=== PATIENT | male | born 1950 | race Caucasian/White ===

== ENCOUNTER 2019-02-21 09:57 | Outpatient (CLI) | payer MEDICARE ==
--- NOTE | 2019-02-21 12:10 | CT ---
CT CHEST WITHOUT CONTRAST: INDICATIONS: Personal history of tobacco use/nicotine dependence with a smoking history of 35 years. COMPARISON: None. TECHNIQUE: Axial tomograms obtained through the chest following a low dose screening protocol. FINDINGS: There are chronic lung parenchymal changes. There are early changes of central lobular emphysema bila terally. Mild hyperexpansion. There is some apical pleural thickening bilaterally. A tiny, 3 mm nodule in the peripheral left upper lobe (image 70 of 244, axial). There is a 3 to 4 mm nodule in the right middle lobe, which may be calcified but I cannot confirm cheryl cification on coronal or sagittal images. This is seen on image 138 of 244, axial. Mild interstitial thickening in the periphery of both lungs, which appears chronic. No evidence of ef fusion or infiltrate. Mediastinum unremarkable with no evidence of adenopathy. Degenerative changes i n the thoracic spine with mild wedging of the mid thoracic vertebrae and bridging osteophytes. Images through the upper abdomen show a partially calcified, rounded density within the gallbladder, consistent with a large gallstone. This is incompletely evaluated. Recommend correlation with gallbla dder ultrasound if this has not been previously confirmed. IMPRESSION: 1. Chronic lung parenchymal changes as described above. Tiny nodules are seen bilaterally as describe d above. 2. Lung-RADS 2 - recommend annual screening low dose chest CT. 3. Evidence of cholelithiasis. Suggest further evaluation with gallbladder ultrasound. POS: NITISH
== END 2019-02-21 09:58 | disposition home or self-care (01) ==
LOC: CT 09:57
PROVIDERS: ATTEND Internal Medicine
DX: Z87.891 Personal history of nicotine dependence (principal)
CPT/HCPCS: G0297

== ENCOUNTER 2019-11-19 20:34 | Emergency (ER) | payer MEDICARE ==
[~2019-11-19 20:34] MED LIST: Bupivacaine PF 0.5% 30 ML VIAL ONE; Fentanyl 100 MCG/2 ML VIAL ONE; Heparin 5,000 UNITS/ML VIAL ONE; Midazolam HCl 2 mg/2 ml Vial ONE; Phenylephrine 1% Nasal Spray 15 ML BOT ONE; Phenylephrine 10 MG/ML VIAL ONE; Protamine Sulfate 50 MG/5 ML VIAL ONE
[2019-11-19 21:21] LABS: #Eosinphils 0.2 thou/uL (0.0-0.7); #Lymphocytes 1.5 thou/uL (1.20-3.40); #Monocytes 0.7 thou/uL (0.11-0.59); #Neutrophils 4.2 thou/uL (1.40-6.50); %Basophils 0.5 % (0.0-1.0); %Eosinophils 2.7 % (0.0-10.0); %Lymphocytes 22.4 % (21.0-51.0); %Neutrophils 63.4 % (42.0-75.0); Hemoglobin 12.9 g/dL (14.0-18.0); Mean Corpuscular HGB CONC 34.1 g/dL (32.0-36.0); Mean Corpuscular Hemoglobin 35.1 pg (27.0-31.0); Mean Platelet Volume 7.4 fL (7.4-10.4); Platelet Count 200 thou/uL (130-400); RBC Distribution Width 11.6 % (11.5-14.5); Red Blood Cell (RBC) Count 3.68 mill/uL (4.70-6.10); White Blood Cell (WBC) Count 6.6 thou/uL (4.8-10.8)
--- NOTE | 2019-11-19 21:31 | RAD ---
XR Chest 1 View Portable History: Fever Comparison: None. Findings: Mild atelectasis within the lung bases. Lung hypoinflation. No confluent airspace consolida tion, pneumothorax or effusion. No acute osseous abnormality. Cardiac silhouette and mediastinal contours are within normal limits. Impression: Scattered bibasilar atelectasis. No confluent pneumonia.
[2019-11-19 21:41] LABS: ALT (SGPT) 21 U/L (8-55); AST (SGOT) 26 U/L (5-34); Albumin 3.5 g/dL (3.4-4.8); Alkaline Phosphatase 76 U/L (40-110); Anion Gap 13 mmol/L (10-20); BUN (Urea Nitrogen) 20 mg/dL (8.4-25.7); Bilirubin, Total 0.7 mg/dL (0.2-1.2); Calc. Creatinine Clearance 0 mL/min (70-130); Calcium 8.5 mg/dL (7.8-10.44); Carbon Dioxide 23 mmol/L (23-31); Chloride 103 mmol/L (98-107); Estimated GFR-MDRD 89; Globulin 2.8 g/dL (2.4-3.5); Glucose 120 mg/dL (83-110); Potassium 3.8 mmol/L (3.5-5.1); Protein, Total 6.3 g/dL (5.8-8.1); Sodium 135 mmol/L (136-145)
[2019-11-19 22:41] LABS: Bilirubin Negative (Negative); Blood, Urine Negative (Negative); Clarity Clear (Clear); Glucose, Urine (Dipstick) Normal (Negative); Ketone, Urine Trace mg/dL (Negative); Leukocyte Negative Leu/uL (Negative); Nitrite Negative (Negative); Protein, Urine (Dipstick) 20 mg/dL (Neg-Trace); Specific Gravity, Urine 1.023 (1.002-1.036); pH, Urine 6.5 (5.0-9.0)
== END 2019-11-19 23:00 | disposition home or self-care (01) ==
LOC: ERS 20:34
DX: R50.9 Fever, unspecified (principal); E78.5 Hyperlipidemia, unspecified; Z79.899 Other long term (current) drug therapy
CPT/HCPCS: 36415; 71045; 80053; 81003; 85025; J0690; J1642; J1644; J2250; J2370; J2720; J3010; S0020

== ENCOUNTER 2020-03-14 12:18 | Outpatient (CLI) | payer MEDICARE ==
--- NOTE | 2020-03-14 13:04 | CT ---
Exam: Noncontrast chest CT; CT lung scan low dose HISTORY:Personal history of tobacco use. Screening study. COMPARISON: None TECHNIQUE: Low-dose screening lung CT is performed utilizing institutional protocol FINDINGS: Lung screening specific (LUNG-RADS): Mild emphysematous changes involving the left and right upper lo be, middle lobe and superior segment of both lower lobes. The degree of emphysematous change is similar to the previous exam. There are no suspicious masses or nodules. Potential significant incidentals (lung RADS category S): None Pulmonary incidentals:Dependent atelectatic changes and emphysematous changes as described above. Other incidentals: Cholelithiasis. Incompletely evaluated infrarenal abdominal aortic stent may be pr esent. IMPRESSION: 1. Lung RADS 1. Negative exam. 2. Lung Rask category S: Negative. No new or unknown potential significant incidental findings requir ing urgent additional evaluation 3. Other incidentals as above, including cholelithiasis. Recommendation: Continued routine annual low-dose lung screening CT. Follow-up in one year.
== END 2020-03-14 12:19 | disposition home or self-care (01) ==
LOC: BICCT 12:18
PROVIDERS: ATTEND Nurse Practitioner Adult Health
DX: Z53.9 Procedure and treatment not carried out, unspecified reason (principal)
CPT/HCPCS: G0297

== ENCOUNTER 2021-03-19 14:06 | Outpatient (CLI) | payer MEDICARE | END 2021-03-19 14:07 | disposition home or self-care (01) | LOC: BICCT 14:06 | PROVIDERS: ATTEND Family Medicine | DX: Z12.2 Encounter for screening for malignant neoplasm of respiratory organs (principal); Z87.891 Personal history of nicotine dependence; I25.10 Atherosclerotic heart disease of native coronary artery without angina pectoris | CPT/HCPCS: 71271 ==